=== PATIENT | female | born 1975 | race Caucasian/White ===

== ENCOUNTER 2020-06-27 04:25 | Emergency (ER) | payer SELFPAY ==
[~2020-06-27] VITALS: Ht 157.5 cm; Wt 52.2 kg
--- NOTE | 2020-06-27 05:00 | NUR ---
pt bibself bibself c/ o sore throat and body aches since 10pm. pt states " i feel like my throat is closing" however pt is speaking in full sentences. pt aox4 rr even and unlabored. no sob noted. no nvd at this time. no acute distress noted. pt waiting for md leon.
--- NOTE | 2020-06-27 05:19 | NUR ---
SHELBIID SWABBED, SENT TO LAB.
--- NOTE | 2020-06-27 05:59 | NUR ---
Patient discharged to home in stable condition. Written and verbal after care instructions given. Patient verbalizes understanding of instruction. Pt told will recieve a phone call once covid results.
[2020-06-27 06:00] VITALS: BP 127/72
--- NOTE | 2020-06-27 06:08 | NUR ---
COVID NEGATIVE, PT AWARE.
== END 2020-06-27 06:09 | disposition home or self-care (01) ==
LOC: ER 04:25
DX: J02.9 Acute pharyngitis, unspecified (principal); F41.1 Generalized anxiety disorder; Z20.828 Contact with and (suspected) exposure to other viral communicable diseases
CPT/HCPCS: 71045; 87070; 87426; 87880; 99284; C9803; 86403-TC